=== PATIENT | male | born 1945 | race Caucasian/White ===

== ENCOUNTER 2018-01-16 04:20 | Emergency (ER) | payer OTHER, SELFPAY ==
[~2018-01-16] VITALS: Ht 177.8 cm; Wt 57.6 kg
[~2018-01-16 04:20] MED LIST: AMOCLA875 PO; Ondansetron Odt8 MG PO; WARF5 PO
[2018-01-16] MEDS ORDERED: HYDR-86 PO (05:07)
[2018-06-24] MEDS ORDERED: WARF7.5 PO (09:57)
== END 2018-01-16 05:23 | disposition home or self-care (01) ==
LOC: ER 04:20
DX: R10.9 Unspecified abdominal pain (principal); I48.91 Unspecified atrial fibrillation; J44.9 Chronic obstructive pulmonary disease, unspecified; F17.200 Nicotine dependence, unspecified, uncomplicated; Z88.0 Allergy status to penicillin; Z79.01 Long term (current) use of anticoagulants; Z95.0 Presence of cardiac pacemaker
CPT/HCPCS: 99282

== ENCOUNTER → 2018-06-08 | Outpatient (CLI) | payer OTHER, SELFPAY ==
[~2018-06-08] MED LIST changes: +HYDR-86 PO
[2018-06-08 18:02] LABS: BASOPHILS ABSOLUTE AUTO 0.04 K/mm3 (0.00-0.23); BASOPHILS PERCENT AUTO 0 % (0-2); EOSINOPHILS PERCENT AUTO 0 % (0-6); Hematocrit 34.8 % (37.0-53.0); IMMATURE GRAN ABSOLUTE AUTO 0.06 K/mm3 (0.00-0.10); IMMATURE GRAN PERCENT AUTO 1 % (0-1); LYMPHOCYTES ABSOLUTE AUTO 0.97 K/mm3 (0.84-5.20); LYMPHOCYTES PERCENT AUTO 8 % (21-46); MONOCYTES ABSOLUTE AUTO 0.77 K/mm3 (0.16-1.47); MONOCYTES PERCENT AUTO 6 % (4-13); Mean Corpuscular HGB 33.4 pg (26.0-34.0); Mean Corpuscular HGB Conc 34.5 g/dL (31.5-36.5); Mean Corpuscular Volume 97 fL (80-100); Mean Platelet Volume 9.3 fL (9.1-12.4); NEUTROPHILS ABSOLUTE AUTO 10.48 K/mm3 (1.96-9.15); NEUTROPHILS PERCENT AUTO 85 % (41-73); Platelet Count 332 K/mm3 (150-400); RDW Coefficient Variation 13.5 % (11.7-14.2); RDW Standard Deviation 48.2 fL (35.1-46.3); Red Blood Cell Count 3.59 M/mm3 (4.30-5.90); White Blood Cell Count 12.32 K/mm3 (4.00-11.30)
[2018-06-08 18:27] LABS: Alanine Aminotransfer (ALT/SGP 31 U/L (12-78); Albumin, Blood 3.6 g/dL (3.4-5.0); Albumin/Globulin Ratio 0.9 (0.8-1.8); Alk Phos 69 U/L (40-126); Anion Gap 9 mmol/L (6-16); Aspartate Aminotrans (AST/SGOT 26 U/L (12-37); Bilirubin, Total 0.5 mg/dL (0.1-1.0); Blood Urea Nitrogen 19 mg/dL (8-24); Bun/Creatinine Ratio 18.1 (12.0-20.0); CO2, Blood 27 mmol/L (21-32); Calcium, Blood 9.4 mg/dL (8.5-10.1); Chloride, Blood 100 mmol/L (98-108); Creatinine, Blood 1.05 mg/dL (0.60-1.20); Globulin, Blood 4.2 g/dL (2.2-4.0); Glomerular Filtration Rate >60 (60-); Glucose, Blood 170 mg/dL (70-99); Potassium, Blood 4.2 mmol/L (3.5-5.5); Sodium, Blood 136 mmol/L (136-145); Thyroid Stimulating Hormone 1.889 uIU/mL (0.360-4.800); Total Protein, Blood 7.8 g/dL (6.4-8.2)
== END | disposition home or self-care (01) ==
LOC: LAB SHORT 17:59 → LAB EV 17:59
PROVIDERS: Family Medicine
DX: R53.83 Other fatigue (principal)
CPT/HCPCS: 80053; 84443; 85025

== ENCOUNTER → 2018-06-09 | Outpatient (CLI) | payer OTHER, SELFPAY | END | disposition home or self-care (01) | LOC: LAB EV 10:09 → LAB SHORT 10:09 | DX: R73.09 Other abnormal glucose (principal) | CPT/HCPCS: 83036 ==

== ENCOUNTER → 2020-01-10 | Outpatient (CLI) | payer OTHER, SELFPAY ==
[~2020-01-10] MED LIST changes: +WARF7.5 PO
[2020-01-10 18:13] LABS: U Amphetamine Screen Not Detected; U Barbituate Screen Not Detected; U Benzodiazapine Screen Not Detected; U Buprenorphine Screen Not Detected; U Cannabinoids Screen Not Detected; U Cocaine Screen Not Detected; U Methadone Screen Not Detected; U Methamphetamine Screen Not Detected; U Opiates Screen Not Detected; U Oxycodone Screen DETECTED; U Phencyclidine Screen Not Detected; U Propoxyphene Screen Not Detected
== END ==
LOC: LAB 17:17 → LAB SHORT 17:17
DX: Z51.81 Encounter for therapeutic drug level monitoring (principal); Z79.891 Long term (current) use of opiate analgesic
CPT/HCPCS: G0480

== ENCOUNTER → 2020-11-18 | Outpatient (CLI) | payer OTHER ==
[~2020-11-18] MED LIST changes: +CEPH500 PO; +OXYCODONE-ACET1 EAC3 PO; +WARF2.5 PO; -WARF7.5 PO
[2020-11-18 19:27] LABS: International Normalized Ratio 1.45; Prothrombin Time Results 15.2 Sec (9.7-11.5)
[2020-11-18 20:43] LABS: Alanine Aminotransfer (ALT/SGP 24 U/L (12-78); Albumin, Blood 3.5 g/dL (3.4-5.0); Albumin/Globulin Ratio 0.9 (0.8-1.8); Alk Phos 71 U/L (50-136); Anion Gap 3 mmol/L (6-16); Aspartate Aminotrans (AST/SGOT 22 U/L (12-37); Bilirubin, Total 0.3 mg/dL (0.1-1.0); Blood Urea Nitrogen 16 mg/dL (8-24); Bun/Creatinine Ratio 21.2 (12.0-20.0); CO2, Blood 31 mmol/L (21-32); Chloride, Blood 106 mmol/L (98-108); Creatinine, Blood 0.76 mg/dL (0.60-1.20); Globulin, Blood 3.7 g/dL (2.2-4.0); Glomerular Filtration Rate >60 (60-); Glucose, Blood 186 mg/dL (70-99); Potassium, Blood 3.6 mmol/L (3.5-5.5); Sodium, Blood 140 mmol/L (136-145); Total Protein, Blood 7.2 g/dL (6.4-8.2)
== END ==
LOC: LAB 17:59 → LAB SHORT 17:59
PROVIDERS: Registered Nurse
DX: Z79.01 Long term (current) use of anticoagulants (principal); Z51.81 Encounter for therapeutic drug level monitoring; I10 Essential (primary) hypertension
CPT/HCPCS: 80053; 85610

== ENCOUNTER 2021-01-16 09:39 | Emergency (ER) | payer OTHER ==
[~2021-01-16] VITALS: Ht 180.3 cm; Wt 52.6 kg
[~2021-01-16 09:39] MED LIST changes: -CEPH500 PO; -OXYCODONE-ACET1 EAC3 PO
[2021-01-16] MEDS ORDERED: OXYCODONE-ACET1 EAC3 PO (10:38)
[2021-01-16 11:04] LABS: BASOPHILS ABSOLUTE AUTO 0.08 K/mm3 (0.00-0.23); BASOPHILS PERCENT AUTO 1 % (0-2); EOSINOPHILS ABSOLUTE AUTO 0.09 K/mm3 (0.00-0.68); EOSINOPHILS PERCENT AUTO 1 % (0-6); Hematocrit 35.7 % (37.0-53.0); Hemoglobin 12.1 g/dL (13.5-17.5); IMMATURE GRAN ABSOLUTE AUTO 0.03 K/mm3 (0.00-0.10); IMMATURE GRAN PERCENT AUTO 0 % (0-1); LYMPHOCYTES ABSOLUTE AUTO 1.45 K/mm3 (0.84-5.20); LYMPHOCYTES PERCENT AUTO 20 % (21-46); MONOCYTES ABSOLUTE AUTO 0.59 K/mm3 (0.16-1.47); MONOCYTES PERCENT AUTO 8 % (4-13); Mean Corpuscular HGB 33.2 pg (26.0-34.0); Mean Corpuscular HGB Conc 33.9 g/dL (31.5-36.5); Mean Corpuscular Volume 98 fL (80-100); Mean Platelet Volume 9.1 fL (9.1-12.4); NEUTROPHILS ABSOLUTE AUTO 4.88 K/mm3 (1.96-9.15); NEUTROPHILS PERCENT AUTO 69 % (41-73); Platelet Count 357 K/mm3 (150-400); RDW Coefficient Variation 13.2 % (11.7-14.2); RDW Standard Deviation 47.8 fL (35.1-46.3); Red Blood Cell Count 3.64 M/mm3 (4.30-5.90); White Blood Cell Count 7.12 K/mm3 (4.00-11.30)
[2021-01-16 11:25] LABS: Alanine Aminotransfer (ALT/SGP 23 U/L (12-78); Albumin, Blood 3.4 g/dL (3.4-5.0); Albumin/Globulin Ratio 0.9 (0.8-1.8); Alk Phos 60 U/L (50-136); Anion Gap 1 mmol/L (6-16); Aspartate Aminotrans (AST/SGOT 26 U/L (12-37); Bilirubin, Total 0.4 mg/dL (0.1-1.0); Blood Urea Nitrogen 13 mg/dL (8-24); Bun/Creatinine Ratio 13.6 (12.0-20.0); CO2, Blood 31 mmol/L (21-32); Calcium, Blood 9.1 mg/dL (8.5-10.1); Chloride, Blood 108 mmol/L (98-108); Creatinine, Blood 0.96 mg/dL (0.60-1.20); Globulin, Blood 3.8 g/dL (2.2-4.0); Glomerular Filtration Rate >60 (60-); Glucose, Blood 122 mg/dL (70-99); Magnesium, Blood 2.2 mg/dL (1.6-2.4); Potassium, Blood 4.1 mmol/L (3.5-5.5); Sodium, Blood 140 mmol/L (136-145); Total Protein, Blood 7.2 g/dL (6.4-8.2)
[2021-01-16 13:00] LABS: International Normalized Ratio 1.4; Prothrombin Time Results 14.7 Sec (9.7-11.5)
[2021-01-16 14:06] LABS: Influenza A, PCR NEGATIVE (NEGATIVE); Influenza B, PCR NEGATIVE (NEGATIVE); Resp Syncytial Virus, PCR NEGATIVE (NEGATIVE); SARS-Cov-2 (COVID-19) PCR, MMC NEGATIVE (NEGATIVE)
[2021-01-17] MEDS ORDERED: CEPH500 PO (09:41)
== END 2021-01-16 13:32 | disposition home or self-care (01) ==
LOC: ER 09:39
PROVIDERS: Emergency Medicine
DX: T82.111A Breakdown (mechanical) of cardiac pulse generator (battery), initial encounter (principal); J44.9 Chronic obstructive pulmonary disease, unspecified; I48.91 Unspecified atrial fibrillation; I42.9 Cardiomyopathy, unspecified; F17.210 Nicotine dependence, cigarettes, uncomplicated; Z88.0 Allergy status to penicillin; Z79.01 Long term (current) use of anticoagulants; Z20.822 Contact with and (suspected) exposure to COVID-19
CPT/HCPCS: 0241U; 36415; 71046; 80053; 83735; 83880; 84484; 85025; 85610; 93005; 93010; 99285-25

== ENCOUNTER 2021-01-17 06:06 | Day surgery (SDC) | payer OTHER ==
[~2021-01-17] VITALS: Ht 172.7 cm; Wt 110.0 kg
[~2021-01-17 06:06] MED LIST changes: +OXYCODONE-ACET1 EAC3 PO
--- NOTE | 2021-01-17 08:25 | NUR ---
TO RECOVERY ROOM. DRESSING DRY AND INTACT. PT DOZING. NOT ALERT AT THIS TIME.
--- NOTE | 2021-01-17 09:15 | NUR ---
PRESCRIPTION CALLED TO [facility].
--- NOTE | 2021-01-17 09:30 | NUR ---
DRESSING REMAIND DRY AND INTACT. PT WAKING UP BUT APPEARS CONFUSED. REPEATING INSTRUCTIONS MULTIPLE TIMES. PT DROVE HIMSELF TO THE HOSPITAL AND DOES NOT REMEMBER PHONE NUMBERS OF NEIGHBORS TO CALL.
[2021-01-17] MEDS ORDERED: CEPH500 PO (09:41)
--- NOTE | 2021-01-17 10:00 | NUR ---
YUAN CAMEJO CALLED TO AUTO MACHINIST PATIENT.
--- NOTE | 2021-01-17 10:10 | NUR ---
DRESSING FOR DISCHARGE. IV REMOVED INTACT. MANUAL PRESSURE HELD BY KAREN BLANCHARD.
--- NOTE | 2021-01-17 10:20 | NUR ---
DISCHARGE INSTRUCTIONS REINFORCED AGAIN PRIOR TO DISCHARGE. DEVICE CARD PLACED IN [place].
--- NOTE | 2021-01-17 10:30 | NUR ---
DISCHARGED HOME VIA WHEELCHAIR. [facility] DRIVING PT TO [facility] TO ADJUSTER PIANO ACTION SCRIPT THEN HOME.
== END 2021-01-17 10:58 | disposition home or self-care (01) ==
LOC: MHTC 06:06
DX: Z45.010 Encounter for checking and testing of cardiac pacemaker pulse generator [battery] (principal); J44.9 Chronic obstructive pulmonary disease, unspecified; F17.200 Nicotine dependence, unspecified, uncomplicated; Z88.0 Allergy status to penicillin; Z79.01 Long term (current) use of anticoagulants
CPT/HCPCS: 33228; 99152; 99153; C1781; C1785; J0690; J1644; J2250; J3010; J3370; J7030; J7040

== ENCOUNTER → 2021-03-17 | Outpatient (CLI) | payer OTHER ==
[~2021-03-17] MED LIST changes: +CEPH500 PO
[2021-03-17 13:45] LABS: International Normalized Ratio 1.89; Prothrombin Time Results 19.7 Sec (9.7-11.5)
== END | disposition home or self-care (01) ==
LOC: LAB 10:00 → LAB SHORT 10:00
PROVIDERS: Nurse Practitioner Family
DX: I48.20 Chronic atrial fibrillation, unspecified (principal)
CPT/HCPCS: 85610

== ENCOUNTER → 2021-04-10 | Outpatient (CLI) | payer OTHER ==
[2021-04-10 11:14] LABS: International Normalized Ratio 2.11; Prothrombin Time Results 21.8 Sec (9.7-11.5)
== END | disposition home or self-care (01) ==
LOC: LAB SHORT 09:30
PROVIDERS: Nurse Practitioner Family
DX: I48.20 Chronic atrial fibrillation, unspecified (principal)
CPT/HCPCS: 85610

== ENCOUNTER → 2021-05-16 | Outpatient (CLI) | payer OTHER ==
[2021-05-16 20:14] LABS: International Normalized Ratio 1.08; Prothrombin Time Results 11.6 Sec (9.7-11.5)
== END | disposition home or self-care (01) ==
LOC: LAB SHORT 09:45
PROVIDERS: Nurse Practitioner Family
DX: I48.20 Chronic atrial fibrillation, unspecified (principal)
CPT/HCPCS: 85610

== ENCOUNTER → 2021-06-20 | Outpatient (CLI) | payer OTHER ==
[2021-06-20 18:59] LABS: International Normalized Ratio 1.25; Prothrombin Time Results 13.3 Sec (9.7-11.5)
== END | disposition home or self-care (01) ==
LOC: LAB 18:02 → LAB SHORT 18:02
PROVIDERS: Nurse Practitioner Family
DX: I48.20 Chronic atrial fibrillation, unspecified (principal)
CPT/HCPCS: 85610

== ENCOUNTER → 2021-06-23 | Outpatient (CLI) | payer OTHER ==
[2021-06-23 12:56] LABS: BASOPHILS ABSOLUTE AUTO 0.07 K/mm3 (0.00-0.23); BASOPHILS PERCENT AUTO 1 % (0-2); EOSINOPHILS PERCENT AUTO 1 % (0-6); Hematocrit 37.3 % (37.0-53.0); Hemoglobin 12.3 g/dL (13.5-17.5); IMMATURE GRAN ABSOLUTE AUTO 0.03 K/mm3 (0.00-0.10); IMMATURE GRAN PERCENT AUTO 0 % (0-1); LYMPHOCYTES ABSOLUTE AUTO 1.73 K/mm3 (0.84-5.20); LYMPHOCYTES PERCENT AUTO 24 % (21-46); MONOCYTES ABSOLUTE AUTO 0.68 K/mm3 (0.16-1.47); MONOCYTES PERCENT AUTO 9 % (4-13); Mean Corpuscular HGB 33.1 pg (26.0-34.0); Mean Corpuscular Volume 100 fL (80-100); Mean Platelet Volume 9.9 fL (9.1-12.4); NEUTROPHILS PERCENT AUTO 64 % (41-73); Platelet Count 340 K/mm3 (150-400); RDW Coefficient Variation 13.4 % (11.7-14.2); RDW Standard Deviation 49.5 fL (35.1-46.3); Red Blood Cell Count 3.72 M/mm3 (4.30-5.90); White Blood Cell Count 7.21 K/mm3 (4.00-11.30)
[2021-06-23 13:07] LABS: Potassium, Blood 4.6 mmol/L (3.5-5.5)
[2021-06-23 13:31] LABS: Alanine Aminotransfer (ALT/SGP 27 U/L (12-78); Albumin, Blood 3.5 g/dL (3.4-5.0); Albumin/Globulin Ratio 0.9 (0.8-1.8); Alk Phos 52 U/L (50-136); Anion Gap 6 mmol/L (6-16); Aspartate Aminotrans (AST/SGOT 21 U/L (12-37); Bilirubin, Total 0.3 mg/dL (0.1-1.0); Blood Urea Nitrogen 13 mg/dL (8-24); Bun/Creatinine Ratio 12.7 (12.0-20.0); CHOL/HDL RATIO 2.6; CO2, Blood 29 mmol/L (21-32); Chloride, Blood 103 mmol/L (98-108); Cholesterol 176 mg/dL (50-200); Creatinine, Blood 1.02 mg/dL (0.60-1.20); Glomerular Filtration Rate >60 (60-); Glucose, Blood 120 mg/dL (70-99); HDL Cholesterol 67 mg/dL (>39); LDL/HDL RATIO 1.3; Low Density Lipoprotein Chol 87 mg/dL (0-110); Sodium, Blood 138 mmol/L (136-145); Total Protein, Blood 7.5 g/dL (6.4-8.2); Triglycerides 110 mg/dL (30-160); Very Low Density Lipoprot Chol 22 mg/dL (6-32)
[2021-06-23 17:06] LABS: U Amphetamine Screen Not Detected; U Barbituate Screen Not Detected; U Benzodiazapine Screen Not Detected; U Buprenorphine Screen Not Detected; U Cannabinoids Screen Not Detected; U Cocaine Screen Not Detected; U Methadone Screen Not Detected; U Methamphetamine Screen Not Detected; U Opiates Screen Not Detected; U Oxycodone Screen DETECTED; U Phencyclidine Screen Not Detected; U Propoxyphene Screen Not Detected
== END | disposition home or self-care (01) ==
LOC: LAB SHORT 09:30 → LAB 09:30 → LAB FUT 06-23 09:15
PROVIDERS: Nurse Practitioner Family
DX: E46 Unspecified protein-calorie malnutrition (principal); E78.5 Hyperlipidemia, unspecified; D64.9 Anemia, unspecified; R91.1 Solitary pulmonary nodule; R19.7 Diarrhea, unspecified; I10 Essential (primary) hypertension; Z79.891 Long term (current) use of opiate analgesic
CPT/HCPCS: 80051; 80053; 80061; 82105; 83036; 84439; 84443; 85025

== ENCOUNTER → 2021-07-24 | Outpatient (CLI) | payer OTHER ==
[2021-07-24 14:00] LABS: International Normalized Ratio 1.32; Prothrombin Time Results 13.6 Sec (9.7-11.5)
== END ==
LOC: LAB SHORT 10:05
PROVIDERS: Nurse Practitioner Family
DX: I48.20 Chronic atrial fibrillation, unspecified (principal); Z79.01 Long term (current) use of anticoagulants
CPT/HCPCS: 85610

== ENCOUNTER → 2021-09-10 | Outpatient (CLI) | payer OTHER ==
[2021-09-10 13:02] LABS: U Amphetamine Screen Not Detected; U Barbituate Screen Not Detected; U Benzodiazapine Screen Not Detected; U Cocaine Screen Not Detected; U Methadone Screen Not Detected; U Methamphetamine Screen Not Detected; U Opiates Screen Not Detected; U Phencyclidine Screen Not Detected
[2021-09-10 13:03] LABS: U Buprenorphine Screen Not Detected; U Cannabinoids Screen Not Detected; U Oxycodone Screen DETECTED; U Propoxyphene Screen Not Detected
[2021-09-10 14:02] LABS: Prothrombin Time Results >90.0 Sec (9.7-11.5)
[2021-09-10 14:05] LABS: International Normalized Ratio >10.00
== END | disposition home or self-care (01) ==
LOC: LAB SHORT 11:00 → EDSTATUS 04-10 09:50 → LAB FUT 04-10 09:50
PROVIDERS: Nurse Practitioner Family
DX: Z79.01 Long term (current) use of anticoagulants (principal); Z51.81 Encounter for therapeutic drug level monitoring; I48.91 Unspecified atrial fibrillation; Z79.891 Long term (current) use of opiate analgesic
CPT/HCPCS: 85610

== ENCOUNTER 2021-09-12 10:35 | Emergency (ER) | payer OTHER ==
[~2021-09-12] VITALS: Ht 167.6 cm; Wt 52.2 kg
[2021-09-12 11:17] LABS: BASOPHILS ABSOLUTE AUTO 0.08 K/mm3 (0.00-0.23); BASOPHILS PERCENT AUTO 1 % (0-2); EOSINOPHILS ABSOLUTE AUTO 0.22 K/mm3 (0.00-0.68); EOSINOPHILS PERCENT AUTO 3 % (0-6); Hematocrit 34.4 % (37.0-53.0); Hemoglobin 11.5 g/dL (13.5-17.5); IMMATURE GRAN ABSOLUTE AUTO 0.04 K/mm3 (0.00-0.10); IMMATURE GRAN PERCENT AUTO 1 % (0-1); LYMPHOCYTES ABSOLUTE AUTO 1.24 K/mm3 (0.84-5.20); LYMPHOCYTES PERCENT AUTO 18 % (21-46); MONOCYTES ABSOLUTE AUTO 0.53 K/mm3 (0.16-1.47); MONOCYTES PERCENT AUTO 8 % (4-13); Mean Corpuscular HGB 32.9 pg (26.0-34.0); Mean Corpuscular HGB Conc 33.4 g/dL (31.5-36.5); Mean Corpuscular Volume 98 fL (80-100); Mean Platelet Volume 9.2 fL (9.1-12.4); NEUTROPHILS ABSOLUTE AUTO 4.85 K/mm3 (1.96-9.15); NEUTROPHILS PERCENT AUTO 70 % (41-73); Platelet Count 557 K/mm3 (150-400); RDW Coefficient Variation 13.7 % (11.7-14.2); RDW Standard Deviation 50.2 fL (35.1-46.3); White Blood Cell Count 6.96 K/mm3 (4.00-11.30)
[2021-09-12 11:39] LABS: Alanine Aminotransfer (ALT/SGP 92 U/L (12-78); Albumin, Blood 2.4 g/dL (3.4-5.0); Albumin/Globulin Ratio 0.6 (0.8-1.8); Alk Phos 354 U/L (50-136); Anion Gap 4 mmol/L (6-16); Aspartate Aminotrans (AST/SGOT 65 U/L (12-37); Bilirubin, Total 0.5 mg/dL (0.1-1.0); Blood Urea Nitrogen 11 mg/dL (8-24); Bun/Creatinine Ratio 14.8 (12.0-20.0); CO2, Blood 30 mmol/L (21-32); Calcium, Blood 8.6 mg/dL (8.5-10.1); Chloride, Blood 107 mmol/L (98-108); Creatinine, Blood 0.74 mg/dL (0.60-1.20); Globulin, Blood 4.2 g/dL (2.2-4.0); Glomerular Filtration Rate >60 (60-); Glucose, Blood 120 mg/dL (70-99); Potassium, Blood 3.4 mmol/L (3.5-5.5); Sodium, Blood 141 mmol/L (136-145); Total Protein, Blood 6.6 g/dL (6.4-8.2)
[2021-09-12 12:27] LABS: Prothrombin Time Results 75.3 Sec (9.7-11.5)
[2021-09-12 12:32] LABS: International Normalized Ratio 8.23
== END 2021-09-12 15:15 | disposition left against medical advice (07) ==
LOC: ER 10:35
PROVIDERS: Physician Assistant
DX: K92.1 Melena (principal); D68.59 Other primary thrombophilia; I48.91 Unspecified atrial fibrillation; J44.9 Chronic obstructive pulmonary disease, unspecified; F17.210 Nicotine dependence, cigarettes, uncomplicated; Z79.01 Long term (current) use of anticoagulants; Z88.0 Allergy status to penicillin
CPT/HCPCS: 36415; 80053; 85025; 85610; 86850; 86900; 86901; 93005; 93010; 99283-25

== ENCOUNTER 2021-09-13 09:02 | Observation (INO) | payer OTHER ==
[~2021-09-13] VITALS: Ht 182.9 cm; Wt 46.7 kg
[2021-09-13 09:45] LABS: BASOPHILS ABSOLUTE AUTO 0.08 K/mm3 (0.00-0.23); BASOPHILS PERCENT AUTO 1 % (0-2); EOSINOPHILS ABSOLUTE AUTO 0.17 K/mm3 (0.00-0.68); EOSINOPHILS PERCENT AUTO 2 % (0-6); Hematocrit 33.9 % (37.0-53.0); Hemoglobin 11.2 g/dL (13.5-17.5); IMMATURE GRAN ABSOLUTE AUTO 0.04 K/mm3 (0.00-0.10); IMMATURE GRAN PERCENT AUTO 1 % (0-1); LYMPHOCYTES ABSOLUTE AUTO 1.47 K/mm3 (0.84-5.20); LYMPHOCYTES PERCENT AUTO 18 % (21-46); MONOCYTES ABSOLUTE AUTO 0.65 K/mm3 (0.16-1.47); MONOCYTES PERCENT AUTO 8 % (4-13); Mean Corpuscular HGB 33.1 pg (26.0-34.0); Mean Corpuscular Volume 100 fL (80-100); Mean Platelet Volume 9.1 fL (9.1-12.4); NEUTROPHILS ABSOLUTE AUTO 6.01 K/mm3 (1.96-9.15); NEUTROPHILS PERCENT AUTO 71 % (41-73); Platelet Count 585 K/mm3 (150-400); RDW Coefficient Variation 13.7 % (11.7-14.2); RDW Standard Deviation 50.4 fL (35.1-46.3); Red Blood Cell Count 3.38 M/mm3 (4.30-5.90); White Blood Cell Count 8.42 K/mm3 (4.00-11.30)
[2021-09-13 09:59] LABS: Alanine Aminotransfer (ALT/SGP 82 U/L (12-78); Albumin, Blood 2.3 g/dL (3.4-5.0); Albumin/Globulin Ratio 0.5 (0.8-1.8); Alk Phos 339 U/L (50-136); Anion Gap 6 mmol/L (6-16); Aspartate Aminotrans (AST/SGOT 54 U/L (12-37); Bilirubin, Total 0.5 mg/dL (0.1-1.0); Blood Urea Nitrogen 10 mg/dL (8-24); Bun/Creatinine Ratio 12.9 (12.0-20.0); CO2, Blood 30 mmol/L (21-32); Calcium, Blood 8.7 mg/dL (8.5-10.1); Chloride, Blood 108 mmol/L (98-108); Creatinine, Blood 0.77 mg/dL (0.60-1.20); Globulin, Blood 4.2 g/dL (2.2-4.0); Glomerular Filtration Rate >60 (60-); Glucose, Blood 131 mg/dL (70-99); Potassium, Blood 3.4 mmol/L (3.5-5.5); Sodium, Blood 144 mmol/L (136-145); Total Protein, Blood 6.5 g/dL (6.4-8.2)
[2021-09-13 10:02] LABS: Prothrombin Time Results 58.7 Sec (9.7-11.5)
[2021-09-13 10:16] LABS: International Normalized Ratio 6.31
[2021-09-13 14:11] LABS: Hematocrit 32.2 % (37.0-53.0); Hemoglobin 10.8 g/dL (13.5-17.5)
--- NOTE | 2021-09-13 16:32 | NUR ---
PT IS 76Y/O MALE ADMITTED FROM ER THIS AFTERNOON,AAOX4,NO ACUTE DISTRESS NOTED STABLE VITALS,DIMINISHED LS,BSX4,CONTINENT OF B/B, SELF AMBULATORY,DENIES PAIN AT MOMENT.REPORT RECIEVED FROM ER NURSE STATES PT SMOKED IN HIS, MD NOTIFIED AND NICOTINE PATCH WAS ORDERED. PT LOOKS EMACIATED AND FRAIL WITH THIN SKIN. BOTH HEELS SLIGHTLY RED BUT BLANCHEABLE, GENERAL SKIN INTACT.PT ORIENTATTION TO ROOM AND CALL LIGHT AND ENCOURAGED TO USED CALL LIGHT ESPECIALLY FOR BR ASSIST.CALL LIGHT WITHIN REACH AND WILL CONTINUE TO MONITOR.
[2021-09-14 03:51] LABS: Influenza A, PCR NEGATIVE (NEGATIVE); Influenza B, PCR NEGATIVE (NEGATIVE); Resp Syncytial Virus, PCR NEGATIVE (NEGATIVE); SARS-Cov-2 (COVID-19) PCR, MMC NEGATIVE (NEGATIVE)
[2021-09-14 05:33] LABS: Hematocrit 30.6 % (37.0-53.0); Hemoglobin 10.3 g/dL (13.5-17.5); Mean Corpuscular HGB Conc 33.7 g/dL (31.5-36.5); Mean Corpuscular Volume 98 fL (80-100); Mean Platelet Volume 9.3 fL (9.1-12.4); Platelet Count 558 K/mm3 (150-400); RDW Coefficient Variation 13.6 % (11.7-14.2); RDW Standard Deviation 49.1 fL (35.1-46.3); Red Blood Cell Count 3.12 M/mm3 (4.30-5.90); White Blood Cell Count 6.46 K/mm3 (4.00-11.30)
[2021-09-14 05:55] LABS: Anion Gap 5 mmol/L (6-16); Blood Urea Nitrogen 10 mg/dL (8-24); CO2, Blood 30 mmol/L (21-32); Calcium, Blood 8.3 mg/dL (8.5-10.1); Chloride, Blood 110 mmol/L (98-108); Creatinine, Blood 0.77 mg/dL (0.60-1.20); Glomerular Filtration Rate >60 (60-); Glucose, Blood 78 mg/dL (70-99); Potassium, Blood 3.8 mmol/L (3.5-5.5); Sodium, Blood 145 mmol/L (136-145)
[2021-09-14 06:29] LABS: International Normalized Ratio 1.42; Prothrombin Time Results 14.6 Sec (9.7-11.5)
--- NOTE | 2021-09-14 06:39 | NUR ---
SHIFT SUMMARY PT ALERT AND ORIENTED. RESTING ON BED QUIETLY. SLEEP MOST OF THE TIME. COVID TEST COLLECTED. NO BLEEDING OBSERVED. KEEP MONITORING
--- NOTE | 2021-09-14 09:32 | NUR ---
PT LEFT AMA, PT REMOVED HIS OWN IV, REMOVED THE TELE, GOT DRESSED AND WALKED OUT, FOUND THE PT IN THE FORBES AND ASKED HIM WHAT HE WAS DOING, HE SAID HE WAS LEAVING, ASKED THE PT IF HE WANTED TO WAIT FOR THE DOCTOR, HE REPLIED NO, AND HE WALKED TO THE ELEVATOR AND LEFT, GAIT WAS SLOW AND STEADY, NOTIFIED DR MOCTEZUMA
--- NOTE | 2021-09-14 09:40 | NUR ---
NOTIFIED DR GALEANA THE PT LEFT AMA
== END 2021-09-14 09:30 | disposition left against medical advice (07) ==
LOC: ER 09:02 → MEDS 10:46 → PCU 10:46 → MEDS 13:49
PROVIDERS: Student in an Organized Health Care Education/Training Program; ADMIT Internal Medicine
DX: K92.1 Melena (principal); I48.20 Chronic atrial fibrillation, unspecified; J44.9 Chronic obstructive pulmonary disease, unspecified; I42.9 Cardiomyopathy, unspecified; F17.210 Nicotine dependence, cigarettes, uncomplicated; D62 Acute posthemorrhagic anemia; R79.1 Abnormal coagulation profile; Z95.0 Presence of cardiac pacemaker; Z88.0 Allergy status to penicillin; Z20.822 Contact with and (suspected) exposure to COVID-19; Z79.01 Long term (current) use of anticoagulants
CPT/HCPCS: 0241U; 36415; 80048; 80053; 83735; 85014; 85018; 85025; 85027; 85610; 85730; 96365; 96375; 99285-25; A9270; C9113; G0378; J3430

== ENCOUNTER 2021-09-14 13:42 | Emergency (ER) | payer OTHER ==
[~2021-09-14] VITALS: Ht 182.9 cm; Wt 49.9 kg
[2021-09-14 15:03] LABS: BASOPHILS ABSOLUTE AUTO 0.08 K/mm3 (0.00-0.23); BASOPHILS PERCENT AUTO 1 % (0-2); EOSINOPHILS ABSOLUTE AUTO 0.06 K/mm3 (0.00-0.68); EOSINOPHILS PERCENT AUTO 1 % (0-6); Hematocrit 32.7 % (37.0-53.0); Hemoglobin 10.9 g/dL (13.5-17.5); IMMATURE GRAN ABSOLUTE AUTO 0.04 K/mm3 (0.00-0.10); IMMATURE GRAN PERCENT AUTO 0 % (0-1); LYMPHOCYTES ABSOLUTE AUTO 1.23 K/mm3 (0.84-5.20); LYMPHOCYTES PERCENT AUTO 14 % (21-46); MONOCYTES ABSOLUTE AUTO 0.68 K/mm3 (0.16-1.47); MONOCYTES PERCENT AUTO 8 % (4-13); Mean Corpuscular HGB 32.8 pg (26.0-34.0); Mean Corpuscular HGB Conc 33.3 g/dL (31.5-36.5); Mean Corpuscular Volume 99 fL (80-100); Mean Platelet Volume 9.1 fL (9.1-12.4); NEUTROPHILS ABSOLUTE AUTO 6.91 K/mm3 (1.96-9.15); NEUTROPHILS PERCENT AUTO 77 % (41-73); Platelet Count 590 K/mm3 (150-400); RDW Coefficient Variation 13.5 % (11.7-14.2); RDW Standard Deviation 48.7 fL (35.1-46.3); Red Blood Cell Count 3.32 M/mm3 (4.30-5.90)
[2021-09-14 15:28] LABS: Alanine Aminotransfer (ALT/SGP 64 U/L (12-78); Albumin, Blood 2.3 g/dL (3.4-5.0); Albumin/Globulin Ratio 0.6 (0.8-1.8); Alk Phos 303 U/L (50-136); Anion Gap 5 mmol/L (6-16); Aspartate Aminotrans (AST/SGOT 41 U/L (12-37); Bilirubin, Total 0.4 mg/dL (0.1-1.0); Blood Urea Nitrogen 18 mg/dL (8-24); CO2, Blood 30 mmol/L (21-32); Calcium, Blood 8.4 mg/dL (8.5-10.1); Chloride, Blood 109 mmol/L (98-108); Creatinine, Blood 0.86 mg/dL (0.60-1.20); Glomerular Filtration Rate >60 (60-); Glucose, Blood 122 mg/dL (70-99); International Normalized Ratio 1.31; Potassium, Blood 3.1 mmol/L (3.5-5.5); Prothrombin Time Results 13.5 Sec (9.7-11.5); Sodium, Blood 144 mmol/L (136-145); Total Protein, Blood 6.3 g/dL (6.4-8.2)
== END 2021-09-14 18:40 | disposition left against medical advice (07) ==
LOC: ER 13:42
PROVIDERS: Emergency Medicine
DX: R19.5 Other fecal abnormalities (principal); I48.91 Unspecified atrial fibrillation; J44.9 Chronic obstructive pulmonary disease, unspecified; F17.200 Nicotine dependence, unspecified, uncomplicated; Z88.0 Allergy status to penicillin
CPT/HCPCS: 36415; 80053; 85025; 85610; 99284

== ENCOUNTER → 2021-09-24 | Outpatient (CLI) | payer OTHER ==
[2021-09-24 12:54] LABS: Prothrombin Time Results 40.1 Sec (9.7-11.5)
[2021-09-24 13:14] LABS: International Normalized Ratio 4.19
== END | disposition home or self-care (01) ==
LOC: LAB SHORT 10:30 → EDSTATUS 09-24 10:20 → LAB FUT 09-24 10:20
PROVIDERS: Nurse Practitioner Family
DX: I48.20 Chronic atrial fibrillation, unspecified (principal); K92.2 Gastrointestinal hemorrhage, unspecified; C22.9 Malignant neoplasm of liver, not specified as primary or secondary
CPT/HCPCS: 82105; 85610

== ENCOUNTER → 2021-10-06 | Outpatient (CLI) | payer OTHER ==
[2021-10-06 19:13] LABS: BASOPHILS ABSOLUTE AUTO 0.11 K/mm3 (0.00-0.23); BASOPHILS PERCENT AUTO 1 % (0-2); EOSINOPHILS ABSOLUTE AUTO 0.23 K/mm3 (0.00-0.68); EOSINOPHILS PERCENT AUTO 3 % (0-6); Hematocrit 35.4 % (37.0-53.0); Hemoglobin 11.5 g/dL (13.5-17.5); IMMATURE GRAN ABSOLUTE AUTO 0.03 K/mm3 (0.00-0.10); IMMATURE GRAN PERCENT AUTO 0 % (0-1); LYMPHOCYTES ABSOLUTE AUTO 1.37 K/mm3 (0.84-5.20); LYMPHOCYTES PERCENT AUTO 18 % (21-46); MONOCYTES ABSOLUTE AUTO 0.64 K/mm3 (0.16-1.47); MONOCYTES PERCENT AUTO 8 % (4-13); Mean Corpuscular HGB 32.6 pg (26.0-34.0); Mean Corpuscular HGB Conc 32.5 g/dL (31.5-36.5); Mean Corpuscular Volume 100 fL (80-100); Mean Platelet Volume 9.2 fL (9.1-12.4); NEUTROPHILS ABSOLUTE AUTO 5.43 K/mm3 (1.96-9.15); NEUTROPHILS PERCENT AUTO 70 % (41-73); Platelet Count 511 K/mm3 (150-400); RDW Coefficient Variation 14.9 % (11.7-14.2); RDW Standard Deviation 54.7 fL (35.1-46.3); Red Blood Cell Count 3.53 M/mm3 (4.30-5.90); White Blood Cell Count 7.81 K/mm3 (4.00-11.30)
[2021-10-06 19:43] LABS: Alanine Aminotransfer (ALT/SGP 63 U/L (12-78); Albumin, Blood 2.5 g/dL (3.4-5.0); Albumin/Globulin Ratio 0.6 (0.8-1.8); Alk Phos 588 U/L (50-136); Anion Gap 9 mmol/L (6-16); Aspartate Aminotrans (AST/SGOT 58 U/L (12-37); Bilirubin, Total 0.5 mg/dL (0.1-1.0); Blood Urea Nitrogen 9 mg/dL (8-24); Bun/Creatinine Ratio 11.2 (12.0-20.0); CO2, Blood 25 mmol/L (21-32); Calcium, Blood 8.4 mg/dL (8.5-10.1); Chloride, Blood 109 mmol/L (98-108); Globulin, Blood 4.1 g/dL (2.2-4.0); Glomerular Filtration Rate >60 (60-); Glucose, Blood 102 mg/dL (70-99); Potassium, Blood 3.7 mmol/L (3.5-5.5); Sodium, Blood 143 mmol/L (136-145); Total Protein, Blood 6.6 g/dL (6.4-8.2)
== END | disposition home or self-care (01) ==
LOC: LAB SHORT 17:50
PROVIDERS: Nurse Practitioner Family
DX: R10.9 Unspecified abdominal pain (principal)
CPT/HCPCS: 80053; 85025

== ENCOUNTER → 2021-10-14 | Outpatient (CLI) | payer OTHER ==
[2021-10-14 15:23] LABS: BASOPHILS ABSOLUTE AUTO 0.08 K/mm3 (0.00-0.23); BASOPHILS PERCENT AUTO 1 % (0-2); EOSINOPHILS ABSOLUTE AUTO 0.27 K/mm3 (0.00-0.68); EOSINOPHILS PERCENT AUTO 4 % (0-6); Hematocrit 30.3 % (37.0-53.0); Hemoglobin 9.9 g/dL (13.5-17.5); IMMATURE GRAN ABSOLUTE AUTO 0.03 K/mm3 (0.00-0.10); IMMATURE GRAN PERCENT AUTO 1 % (0-1); LYMPHOCYTES ABSOLUTE AUTO 1.24 K/mm3 (0.84-5.20); LYMPHOCYTES PERCENT AUTO 20 % (21-46); MONOCYTES ABSOLUTE AUTO 0.62 K/mm3 (0.16-1.47); MONOCYTES PERCENT AUTO 10 % (4-13); Mean Corpuscular HGB 32.7 pg (26.0-34.0); Mean Corpuscular HGB Conc 32.7 g/dL (31.5-36.5); Mean Corpuscular Volume 100 fL (80-100); Mean Platelet Volume 9.3 fL (9.1-12.4); NEUTROPHILS ABSOLUTE AUTO 3.99 K/mm3 (1.96-9.15); NEUTROPHILS PERCENT AUTO 64 % (41-73); Platelet Count 485 K/mm3 (150-400); RDW Coefficient Variation 14.7 % (11.7-14.2); Red Blood Cell Count 3.03 M/mm3 (4.30-5.90); White Blood Cell Count 6.23 K/mm3 (4.00-11.30)
[2021-10-14 15:26] LABS: International Normalized Ratio 1.55; Prothrombin Time Results 15.8 Sec (9.7-11.5)
[2021-10-14 15:33] LABS: Alanine Aminotransfer (ALT/SGP 33 U/L (12-78); Albumin, Blood 2.3 g/dL (3.4-5.0); Albumin/Globulin Ratio 0.6 (0.8-1.8); Alk Phos 444 U/L (50-136); Anion Gap 5 mmol/L (6-16); Aspartate Aminotrans (AST/SGOT 36 U/L (12-37); Bilirubin, Total 0.4 mg/dL (0.1-1.0); Blood Urea Nitrogen 11 mg/dL (8-24); Bun/Creatinine Ratio 14.7 (12.0-20.0); CO2, Blood 30 mmol/L (21-32); Calcium, Blood 8.5 mg/dL (8.5-10.1); Chloride, Blood 107 mmol/L (98-108); Creatinine, Blood 0.75 mg/dL (0.60-1.20); Globulin, Blood 3.7 g/dL (2.2-4.0); Glomerular Filtration Rate >60 (60-); Glucose, Blood 92 mg/dL (70-99); Potassium, Blood 3.8 mmol/L (3.5-5.5); Sodium, Blood 142 mmol/L (136-145)
== END | disposition home or self-care (01) ==
LOC: LAB SHORT 11:00
PROVIDERS: Nurse Practitioner Family
DX: Z01.812 Encounter for preprocedural laboratory examination (principal); I48.20 Chronic atrial fibrillation, unspecified
CPT/HCPCS: 80053; 85025; 85610